=== PATIENT | female | born 1995 | race African-American/Black ===

== ENCOUNTER 2017-11-14 11:02 | Inpatient (IN) | payer SELFPAY ==
[2017-11-14] MEDS: SODIUM CHLOR 0.9% 1000 ML INJ 1,000 ML IV ×5 (12:19→20:59)
[2017-11-14] MEDS: SODIUM CHLOR 0.9% 1000 ML INJ 600 ML IV (12:20)
[2017-11-14 12:28] LABS: AUTOMATED NEUTROPHIL # 11.6 TH/MM3 (1.8-7.7); BASOPHIL # 0.1 TH/MM3 (0-0.2); BASOPHIL % 0.7 % (0.0-2.0); EOSINOPHIL % 0.1 % (0.0-4.0); HEMATOCRIT 40.4 % (35.0-46.0); HEMO FLAGS DIFF FINAL; HEMOGLOBIN 13.4 GM/DL (11.6-15.3); LYMPH % 16.3 % (9.0-44.0); LYMPHOCYTE # 2.5 TH/MM3 (1.0-4.8); MEAN CELL VOLUME 74.9 FL (80.0-100.0); MEAN CORPUSCULAR HEMOGLOBIN 24.9 PG (27.0-34.0); MEAN CORPUSCULAR HGB CONC 33.2 % (32.0-36.0); MEAN PLATELET VOLUME 8.5 FL (7.0-11.0); MONO % 7.2 % (0.0-8.0); MONOCYTE # 1.1 TH/MM3 (0-0.9); NEUT % 75.7 % (16.0-70.0); PLATELET COUNT 237 TH/MM3 (150-450); RED CELL DISTRIBUTION WIDTH 14.2 % (11.6-17.2); WHITE BLOOD COUNT 15.3 TH/MM3 (4.0-11.0)
[2017-11-14] MEDS: IBUPROFEN 600 MG TAB PO (12:28)
[2017-11-14 12:54] LABS: LACTIC ACID SEPSIS PROTOCOL 3.5 mmol/L (0.4-2.0)
[2017-11-14 12:55] LABS: ALKALINE PHOSPHATASE 57 U/L (45-117); TOTAL BILIRUBIN ADULT 1.3 MG/DL (0.2-1.0); TOTAL PROTEIN 8.2 GM/DL (6.4-8.2)
[2017-11-14 13:13] LABS: ALBUMIN 3.3 GM/DL (3.4-5.0); ALT (GPT) 17 U/L (10-53); ANION GAP 9 MEQ/L (5-15); AST (GOT) 20 U/L (15-37); BICARBONATE 28.2 MEQ/L (21.0-32.0); BLOOD UREA NITROGEN 8 MG/DL (7-18); CALCIUM 9.4 MG/DL (8.5-10.1); CHLORIDE 100 MEQ/L (98-107); CREATININE 0.95 MG/DL (0.50-1.00); GLOMERULAR FILTRATION RATE 88 ML/MIN (>89); GLUCOSE,RANDOM 279 MG/DL (74-106); POTASSIUM 4.5 MEQ/L (3.5-5.1); SODIUM (NA) 137 MEQ/L (136-145)
[2017-11-14] MEDS: VANCOMYCIN INJ 1,750 MG in SODIUM CHLORID 0.9% 500 ML INJ 500 ML IV (13:26)
[2017-11-14 14:22] LABS: LACTIC ACID GHOST NOT REPORTABLE
[2017-11-14] MEDS ORDERED: BISACODYL 10 MG SUPP RECTAL (14:45)
[2017-11-14] MEDS ORDERED: NALOXONE HCL 0.4 MG/ML AMP IV PUSH (14:45)
[2017-11-14] MEDS ORDERED: LACTULOSE SYRUP 20 GM/30 ML CUP PO (14:45)
[2017-11-14] MEDS ORDERED: SENNOSIDES 8.6 MG TAB PO (14:45)
[2017-11-14] MEDS ORDERED: ONDANSETRON HCL 4 MG/2 ML VIAL IVP (14:45)
[2017-11-14] MEDS ORDERED: MAGNESIUM HYDROXIDE SUSP 30 ML CUP PO (14:45)
[2017-11-14] MEDS ORDERED: SODIUM CHLORIDE 0.9% FLUSH 10 ML FLUSH IV FLUSH (14:45)
[2017-11-14] MEDS ORDERED: Vancomycin Consult Pharmacy 1 EA OTHER (17:45)
[2017-11-14 17:47] LABS: LACTIC ACID SEPSIS REPEAT 0.9 mmol/L (0.4-2.0)
[2017-11-14] MEDS: ENOXAPARIN SODIUM 40 MG/0.4 ML SYRINGE SQ (18:13)
[2017-11-14] MEDS: VANCOMYCIN INJ 2,500 MG in SODIUM CHLORID 0.9% 500 ML INJ 500 ML IV (20:00)
[2017-11-14] MEDS: SODIUM CHLORIDE 0.9% FLUSH 10 ML FLUSH IV FLUSH (21:00)
[2017-11-14] MEDS: ACETAMINOPHEN 325 MG TAB PO (21:13)
[2017-11-14 21:40] LABS: HEMOGLOBIN A1C 11.2 % (4.3-6.0); HEMOGLOBIN A1a 2.1 %; HEMOGLOBIN A1b 3.1 %; HEMOGLOBIN Ao 75.1 %; HEMOGLOBIN LA1C 3.4 %; HEMOGLOBIN P3 4.8 %
[2017-11-14 21:57] LABS: BILIRUBIN, URINE NEG (NEG); BLOOD, URINE LARGE (NEG); GLUCOSE,URINE 1000 mg/dL (NEG); KETONE, URINE 10 mg/dL (NEG); NITRITE,URINE NEG (NEG); SQUAMOUS EPITHELIAL CELL URINE 5 /hpf (0-5); URINE COLOR YELLOW (YELLW/STRAW); URINE LEUKOCYTE ESTERASE TRACE (NEG); WHITE BLOOD CELL CLUMPS FEW
[2017-11-14 21:59] LABS: COMMENT (UR) CATH-CULTURE IND; CULTURE IF INDICATED CATH CULTURE IND
[2017-11-14] MEDS ORDERED: GLUCAGON 1 MG/ML VIAL OTHER (23:45)
[2017-11-14] MEDS ORDERED: DEXTROSE 50% IN WATER 50 ML VIAL(D50) IV PUSH (23:45)
[2017-11-15] MEDS ORDERED: VANCOMYCIN INJ 1,750 MG in SODIUM CHLORID 0.9% 500 ML INJ 500 ML IV (01:30)
[2017-11-15] MEDS: ACETAMINOPHEN 325 MG TAB PO ×3 (02:32→20:44)
[2017-11-15] MEDS: SODIUM CHLOR 0.9% 1000 ML INJ 1,000 ML IV ×4 (03:27→22:51)
[2017-11-15 04:37] LABS: AUTOMATED NEUTROPHIL # 5.1 TH/MM3 (1.8-7.7); BASOPHIL % 0.5 % (0.0-2.0); EOSINOPHIL # 0.1 TH/MM3 (0-0.4); EOSINOPHIL % 0.8 % (0.0-4.0); HEMO FLAGS DIFF FINAL; HEMOGLOBIN 11.1 GM/DL (11.6-15.3); LYMPHOCYTE # 1.6 TH/MM3 (1.0-4.8); MEAN CELL VOLUME 74.5 FL (80.0-100.0); MEAN CORPUSCULAR HEMOGLOBIN 24.4 PG (27.0-34.0); MEAN CORPUSCULAR HGB CONC 32.7 % (32.0-36.0); MEAN PLATELET VOLUME 8.1 FL (7.0-11.0); MONO % 10.8 % (0.0-8.0); MONOCYTE # 0.8 TH/MM3 (0-0.9); NEUT % 66.9 % (16.0-70.0); PLATELET COUNT 195 TH/MM3 (150-450); RED BLOOD COUNT 4.56 MIL/MM3 (4.00-5.30); RED CELL DISTRIBUTION WIDTH 14.2 % (11.6-17.2); WHITE BLOOD COUNT 7.7 TH/MM3 (4.0-11.0)
[2017-11-15 05:08] LABS: ALBUMIN 2.5 GM/DL (3.4-5.0); ALKALINE PHOSPHATASE 59 U/L (45-117); ALT (GPT) 21 U/L (10-53); ANION GAP 10 MEQ/L (5-15); AST (GOT) 39 U/L (15-37); BICARBONATE 22.9 MEQ/L (21.0-32.0); BLOOD UREA NITROGEN 5 MG/DL (7-18); CHLORIDE 108 MEQ/L (98-107); CREATININE 0.51 MG/DL (0.50-1.00); GLOMERULAR FILTRATION RATE 181 ML/MIN (>89); GLUCOSE,RANDOM 195 MG/DL (74-106); POTASSIUM 3.5 MEQ/L (3.5-5.1); SODIUM (NA) 141 MEQ/L (136-145); TOTAL BILIRUBIN ADULT 1.2 MG/DL (0.2-1.0); TOTAL PROTEIN 6.4 GM/DL (6.4-8.2)
[2017-11-15] MEDS: KETOROLAC TROMETHAMINE 30 MG/ML (IVP) VIAL IV PUSH ×2 (05:43→20:43)
[2017-11-15] MEDS: LEVOFLOXACIN 750 MG PREMIX INJ 150 ML IV (08:00)
[2017-11-15] MEDS: SODIUM CHLORIDE 0.9% FLUSH 10 ML FLUSH IV FLUSH ×2 (08:00→20:44)
[2017-11-15] MEDS: INSULIN ASPART SUPPLEMENTAL SCALE SQ ×4 (08:00→20:44)
[2017-11-15] MEDS: DOCUSATE SODIUM 50 MG/SENNA 8.6 MG TAB PO ×2 (08:00→20:44)
[2017-11-15] MEDS: METOCLOPRAMIDE HCL 10 MG/2 ML VIAL IV PUSH ×2 (09:50→20:43)
[2017-11-15] MEDS: VANCOMYCIN INJ 2,000 MG in SODIUM CHLORID 0.9% 500 ML INJ 500 ML IV (11:51)
[2017-11-15] MEDS: ENOXAPARIN SODIUM 40 MG/0.4 ML SYRINGE SQ (17:34)
[2017-11-16] MEDS: VANCOMYCIN INJ 2,000 MG in SODIUM CHLORID 0.9% 500 ML INJ 500 ML IV ×2 (00:14→12:49)
[2017-11-16] MEDS: ACETAMINOPHEN 325 MG TAB PO ×3 (03:35→20:14)
[2017-11-16] MEDS: KETOROLAC TROMETHAMINE 30 MG/ML (IVP) VIAL IV PUSH (03:35)
[2017-11-16] MEDS: SODIUM CHLOR 0.9% 1000 ML INJ 1,000 ML IV (05:15)
[2017-11-16 05:40] LABS: BASOPHIL % 0.4 % (0.0-2.0); EOSINOPHIL # 0.1 TH/MM3 (0-0.4); EOSINOPHIL % 1.1 % (0.0-4.0); HEMATOCRIT 33.1 % (35.0-46.0); HEMO FLAGS DIFF FINAL; LYMPH % 18.1 % (9.0-44.0); LYMPHOCYTE # 1.7 TH/MM3 (1.0-4.8); MEAN CELL VOLUME 73.5 FL (80.0-100.0); MEAN CORPUSCULAR HEMOGLOBIN 24.4 PG (27.0-34.0); MEAN CORPUSCULAR HGB CONC 33.2 % (32.0-36.0); MEAN PLATELET VOLUME 8.3 FL (7.0-11.0); MONO % 7.3 % (0.0-8.0); MONOCYTE # 0.7 TH/MM3 (0-0.9); NEUT % 73.1 % (16.0-70.0); PLATELET COUNT 258 TH/MM3 (150-450); RED BLOOD COUNT 4.51 MIL/MM3 (4.00-5.30); RED CELL DISTRIBUTION WIDTH 14.3 % (11.6-17.2); WHITE BLOOD COUNT 9.6 TH/MM3 (4.0-11.0)
[2017-11-16 06:04] LABS: ANION GAP 10 MEQ/L (5-15); BICARBONATE 22.4 MEQ/L (21.0-32.0); BLOOD UREA NITROGEN 6 MG/DL (7-18); CALCIUM 8.2 MG/DL (8.5-10.1); CHLORIDE 109 MEQ/L (98-107); CREATININE 0.45 MG/DL (0.50-1.00); GLOMERULAR FILTRATION RATE 209 ML/MIN (>89); GLUCOSE,RANDOM 196 MG/DL (74-106); POTASSIUM 3.5 MEQ/L (3.5-5.1); SODIUM (NA) 141 MEQ/L (136-145)
[2017-11-16] MEDS: INSULIN ASPART SUPPLEMENTAL SCALE SQ ×4 (08:00→22:20)
[2017-11-16] MEDS: SODIUM CHLORIDE 0.9% FLUSH 10 ML FLUSH IV FLUSH ×2 (08:07→20:15)
[2017-11-16] MEDS: DOCUSATE SODIUM 50 MG/SENNA 8.6 MG TAB PO ×2 (08:08→20:15)
[2017-11-16] MEDS: LEVOFLOXACIN 750 MG PREMIX INJ 150 ML IV (08:10)
[2017-11-16] MEDS: PHARMACY ORDERED LAB (11:45)
[2017-11-16 13:10] LABS: VANCOMYCIN TROUGH 4.2 MCG/ML (5.0-10.0)
[2017-11-16] MEDS: LISINOPRIL 10 MG TAB PO (13:20)
[2017-11-16] MEDS: FUROSEMIDE 20 MG TAB PO (13:20)
[2017-11-16] MEDS: FUROSEMIDE 20 MG/2 ML VIAL IV PUSH (16:51)
[2017-11-16] MEDS: ENOXAPARIN SODIUM 40 MG/0.4 ML SYRINGE SQ (16:58)
[2017-11-16] MEDS: GADODIAMIDE PF 287 MG/ML 20 ML VIAL (for RAD MRI) IVCONTRAST (19:26)
[2017-11-16] MEDS: PIPERACIL-TAZO 4.5 GM PREMIX 100 ML IV (22:19)
[2017-11-16] MEDS: cloNIDine HCL 0.1 MG TAB PO (22:19)
[2017-11-16] MEDS: INSULIN DETEMIR 100 UNITS/ML VIAL SQ (22:20)
[2017-11-17] MEDS: VANCOMYCIN INJ 1,500 MG in SODIUM CHLORID 0.9% 500 ML INJ 500 ML IV ×3 (00:04→17:20)
[2017-11-17] MEDS: PIPERACIL-TAZO 4.5 GM PREMIX 100 ML IV ×4 (04:26→21:24)
[2017-11-17 06:09] LABS: AUTOMATED NEUTROPHIL # 6.2 TH/MM3 (1.8-7.7); BASOPHIL % 0.5 % (0.0-2.0); EOSINOPHIL # 0.1 TH/MM3 (0-0.4); EOSINOPHIL % 1.2 % (0.0-4.0); HEMO FLAGS DIFF FINAL; HEMOGLOBIN 10.5 GM/DL (11.6-15.3); LYMPH % 27.3 % (9.0-44.0); LYMPHOCYTE # 2.6 TH/MM3 (1.0-4.8); MEAN CELL VOLUME 73.3 FL (80.0-100.0); MEAN CORPUSCULAR HEMOGLOBIN 24.8 PG (27.0-34.0); MEAN CORPUSCULAR HGB CONC 33.8 % (32.0-36.0); MEAN PLATELET VOLUME 8.2 FL (7.0-11.0); MONO % 6.3 % (0.0-8.0); MONOCYTE # 0.6 TH/MM3 (0-0.9); NEUT % 64.7 % (16.0-70.0); PLATELET COUNT 268 TH/MM3 (150-450); RED BLOOD COUNT 4.23 MIL/MM3 (4.00-5.30); RED CELL DISTRIBUTION WIDTH 14.5 % (11.6-17.2); WHITE BLOOD COUNT 9.6 TH/MM3 (4.0-11.0)
[2017-11-17 06:29] LABS: BLOOD UREA NITROGEN 6 MG/DL (7-18)
[2017-11-17 06:29] LABS: CREATININE 0.54 MG/DL (0.50-1.00); GLOMERULAR FILTRATION RATE 169 ML/MIN (>89)
[2017-11-17] MEDS: DOCUSATE SODIUM 50 MG/SENNA 8.6 MG TAB PO ×2 (07:59→20:48)
[2017-11-17] MEDS: LISINOPRIL 10 MG TAB PO (08:35)
[2017-11-17] MEDS: LEVOFLOXACIN 750 MG PREMIX INJ 150 ML IV (08:35)
[2017-11-17] MEDS: ACETAMINOPHEN 325 MG TAB PO ×2 (08:35→12:47)
[2017-11-17] MEDS: INSULIN ASPART SUPPLEMENTAL SCALE SQ ×4 (08:36→20:48)
[2017-11-17] MEDS: INSULIN DETEMIR 100 UNITS/ML VIAL SQ ×2 (08:36→20:48)
[2017-11-17] MEDS: SODIUM CHLORIDE 0.9% FLUSH 10 ML FLUSH IV FLUSH ×2 (08:36→20:48)
[2017-11-17] MEDS: PHARMACY ORDERED LAB (14:45)
[2017-11-17] MEDS: METOCLOPRAMIDE HCL 10 MG/2 ML VIAL IV PUSH (17:27)
[2017-11-17] MEDS: ENOXAPARIN SODIUM 40 MG/0.4 ML SYRINGE SQ (17:28)
[2017-11-17 17:39] LABS: VANCOMYCIN TROUGH 7.5 MCG/ML (5.0-10.0)
[2017-11-17] MEDS: cloNIDine HCL 0.1 MG TAB PO (20:48)
[2017-11-18] MEDS: VANCOMYCIN INJ 1,500 MG in SODIUM CHLORID 0.9% 500 ML INJ 500 ML IV ×3 (00:09→17:53)
[2017-11-18] MEDS: PIPERACIL-TAZO 4.5 GM PREMIX 100 ML IV ×3 (04:02→15:36)
[2017-11-18] MEDS: DOCUSATE SODIUM 50 MG/SENNA 8.6 MG TAB PO ×2 (08:26→20:55)
[2017-11-18] MEDS: LEVOFLOXACIN 750 MG PREMIX INJ 150 ML IV (08:27)
[2017-11-18] MEDS: INSULIN ASPART SUPPLEMENTAL SCALE SQ ×4 (08:28→20:56)
[2017-11-18] MEDS: INSULIN DETEMIR 100 UNITS/ML VIAL SQ ×2 (08:28→20:56)
[2017-11-18] MEDS: LISINOPRIL 10 MG TAB PO (08:28)
[2017-11-18] MEDS: SODIUM CHLORIDE 0.9% FLUSH 10 ML FLUSH IV FLUSH ×2 (08:28→20:55)
[2017-11-18] MEDS: ENOXAPARIN SODIUM 40 MG/0.4 ML SYRINGE SQ (17:31)
[2017-11-18] MEDS: PHARMACY ORDERED LAB (17:53)
[2017-11-18] MEDS: ACETAMINOPHEN 325 MG TAB PO (18:04)
[2017-11-18 18:44] LABS: VANCOMYCIN TROUGH 12.1 MCG/ML (5.0-10.0)
[2017-11-18] MEDS: DOXYCYCLINE HYCLATE 100 MG CAP PO (20:55)
[2017-11-18] MEDS: cloNIDine HCL 0.1 MG TAB PO (20:55)
[2017-11-19] MEDS ORDERED: VANCOMYCIN INJ 1,500 MG in SODIUM CHLORID 0.9% 500 ML INJ 500 ML IV (02:00)
[2017-11-19] MEDS: INSULIN ASPART SUPPLEMENTAL SCALE SQ ×2 (08:00→13:15)
[2017-11-19] MEDS: SODIUM CHLORIDE 0.9% FLUSH 10 ML FLUSH IV FLUSH (09:00)
[2017-11-19] MEDS: DOCUSATE SODIUM 50 MG/SENNA 8.6 MG TAB PO (09:00)
[2017-11-19] MEDS: INSULIN DETEMIR 100 UNITS/ML VIAL SQ (09:00)
[2017-11-19] MEDS: DOXYCYCLINE HYCLATE 100 MG CAP PO (09:17)
[2017-11-19] MEDS: LISINOPRIL 10 MG TAB PO (09:18)
[2017-11-19 10:50] LABS: HEMATOCRIT 35.8 % (35.0-46.0); HEMOGLOBIN 11.8 GM/DL (11.6-15.3); MEAN CELL VOLUME 74.7 FL (80.0-100.0); MEAN CORPUSCULAR HEMOGLOBIN 24.5 PG (27.0-34.0); MEAN CORPUSCULAR HGB CONC 32.8 % (32.0-36.0); MEAN PLATELET VOLUME 8.1 FL (7.0-11.0); PLATELET COUNT 406 TH/MM3 (150-450); RED BLOOD COUNT 4.79 MIL/MM3 (4.00-5.30); RED CELL DISTRIBUTION WIDTH 14.7 % (11.6-17.2); REVIEW FLAG FINAL
[2017-11-19 11:30] LABS: ANION GAP 9 MEQ/L (5-15); BICARBONATE 28.4 MEQ/L (21.0-32.0); BLOOD UREA NITROGEN 6 MG/DL (7-18); CALCIUM 9.7 MG/DL (8.5-10.1); CHLORIDE 104 MEQ/L (98-107); CREATININE 0.78 MG/DL (0.50-1.00); GLOMERULAR FILTRATION RATE 111 ML/MIN (>89); GLUCOSE,RANDOM 255 MG/DL (74-106); SODIUM (NA) 141 MEQ/L (136-145)
[2017-11-19 12:02] LABS: POTASSIUM 4.2 MEQ/L (3.5-5.1)
== END 2017-11-19 15:11 | disposition home or self-care (01) | DRG 871 ==
LOC: N04B 11-15 05:10 → NEPD 11:02 → NEDA 13:55 → NEDH 20:25
DX: A41.9 Sepsis, unspecified organism (principal); J18.9 Pneumonia, unspecified organism; L03.115 Cellulitis of right lower limb; E10.65 Type 1 diabetes mellitus with hyperglycemia; I10 Essential (primary) hypertension; R65.20 Severe sepsis without septic shock; R63.8 Other symptoms and signs concerning food and fluid intake; E66.9 Obesity, unspecified; Z68.36 Body mass index [BMI] 36.0-36.9, adult
CPT/HCPCS: 71046; 73600; 73720; 76882; 80048; 80053; 80202; 81001; 82565; 82948; 83036; 83605; 84520; 84703; 85025; 85027; 87040; 87086; 87449; 93005; 94150; 96365; 99285-25